=== PATIENT | male | born 1950 | race Caucasian/White ===

== ENCOUNTER 2025-02-19 12:14 | Outpatient (CLI) | payer MEDICARE, SELFPAY ==
--- NOTE | 2025-02-19 12:29 | ECG_ITS ---
Test Date: 2025-02-19 13:18:07 Measurements Intervals Turner Rate: 63 P: 47 AK: 218 QRS: 16 QRSD: 92 T: 37 QT: 419 QTc: 430 Interpretive Statements SINUS RHYTHM WITH FIRST DEGREE AV BLOCK ST DEVIATION AND MODERATE T-WAVE ABNORMALITY, CONSIDER ANTERIOR ISCHEMIA [-0.1+ mV T-WAVE IN V3/V4] No previous ECG available for comparison Electronically Signed On 02-19-2025 21:26:11 EMS DIRECTOR by Karlos Alcazar M.D.
[2025-02-19 13:12] LABS: Hematocrit 36.4 % (42.0-52.0); Hemoglobin 11.9 g/dL (14.0-18.0)
[2025-02-19 13:28] LABS: INR 1.1; Partial Thromboplastin Time 28.0 Seconds (22.3-36.8); Prothrombin Time 14.1 Seconds (11.1-14.7)
[2025-02-19 13:30] LABS: Anion Gap 10 mmol/L (4-12); Blood Urea Nitrogen 34 mg/dL (9-20); Calcium 9.2 mg/dL (8.4-10.2); Carbon Dioxide 26 mmol/L (22-30); Chloride 100 mmol/L (98-107); Estimated Glomerular Filt Rate 42; Glucose 100 mg/dL (65-110); Potassium 3.9 mmol/L (3.4-5.0); Sodium 136 mmol/L (137-145)
--- OUTSIDE RECORDS SUMMARY | 2025-02-19 14:13 | XMS_ITS | Clinical Summary ---
Author Organization [facility] Address [address] [place] [address] Care Team Providers Care Business Account Specialist Name Role Phone Unavailable Primary Care Provider Unavailabl e Source Comments [facility],non-owned Affiliates and Associated Physician Practices is amultiple site organization consisting of ambulatory clinics and hospital sitesin [place], [place], [place] and [place]. This disclosure is being madepursuant to the Care Everywhere program and may not contain all information available regarding this patient. 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 Gender Identity Not on file Sexual Orientation Not on file Plan of Treatment Health Maintenance Due Date Last Done Comments COLOGUARD (AGES 45-75) - COL ON CA SCREENING 1952 COLON MONITORING 1952 COLONOSCOPY - COLON CA SCREENING 1952 CT COLONOGRAPHY - COLON CA SCREENING 1952 Colorectal Cancer Screening 1952 FIT - COLON CA SCREENING 1952 FLEX SIG - COLON CA SCREENING 1952 LIPID TESTING 1952 HEPATITIS C SCREENING 05/25/1970 DTAP/TDAP/TD VACCINES (1 - Tdap) 1971 PNEUMOCOCCAL VACCINE 50+ (1 of 1 - PCV) 2002 ZOSTER VACCINE (1 of 2) 2002 DEPRESSION SCREENING 04/18/2024 COVID-19 VACCINE ( - 2023-2 5 season) 2024 INFLUENZA VACCINE (#1) 2024 Respiratory Syncytial Virus (RSV) Vaccine Pt: or over 60 yrs (1 - 1-dose 75+ series) 2027 HEPATITIS B VACCINE Aged Out No longe r eligible based on patient's age to complete this topic HIB VACCINE Aged Out No longer eligi ble based on patient's age to complete this topic HPV VACCINE Aged Out No longer eligi ble based on patient's age to complete this topic MENINGOCOCCAL (Group B) VACC INE SHARED DECISION-MAKING Aged Out No longer eligibl e based on patient's age to complete this topic MENINGOCOCCAL GROUPS A/C/Y/W VACCINE Aged Out No longer eligible b ased on patient's age to complete this topic
== END 2025-02-19 12:15 | disposition home or self-care (01) ==
LOC: ANHSURGERY 12:22
PROVIDERS: Anesthesiology; PCP Family Medicine; Visit Provider Urology
DX: Z01.818 Encounter for other preprocedural examination (principal); I12.9 Hypertensive chronic kidney disease with stage 1 through stage 4 chronic kidney disease, or unspecified chronic kidney disease; N18.30 Chronic kidney disease, stage 3 unspecified; D63.1 Anemia in chronic kidney disease; E78.5 Hyperlipidemia, unspecified; Z79.899 Other long term (current) drug therapy
CPT/HCPCS: 36415; 80048; 85014; 85018; 85610; 85730; 93005

== ENCOUNTER 2025-02-21 01:02 | Day surgery (SDC) | payer MEDICARE, SELFPAY ==
--- NOTE | 2025-02-13 07:05 | P.HP_ITS ---
History of Present Illness History of Present Illness Consent: Risks, benefits, and alternatives have been discussed and questions answered. Patient agrees to proceed with procedure. Chief complaint: acute chronic urinary retention, BPH Narrative: Campbell Bellamy is a 74 year old male History of Present Illness (Mary Montes APRN; 11/29/2024 1:00 PM) The patient is a 74 year old male here for an evaluation of neurogenic bladder. The patient's neurologic diagnosis is spinal cord injury . ?Bladder management techniques include chronic ritter . Note for Neurogenic bladder - follow-up: . 06/29 - 08/09: ?Absence / not seen in our practice 07/2023: ?Chronic indwelling catheter since 05/2018 due to difficulty ambulating d/t bilat. foot drop. 10/2023: ?Fillinst sensation fillinml ?1st desire to void: 200ml ?Capacity: 250ml ?Compliance: normal ?Emptying: void time: 48sec ?ave. flow: 5ml/sec ?Pressure: peak detrusor pressure: 24guF3E ?peak Valsalva pressure: 12biM30 ?Interpretation: Moderate detrusor pressure ?Plan: ?Prostate volume (CT-[facility] 05/2019): 119gm ?Will re-assess prostate volume and consider PAE. 11/22/24: Patient here for annual check up, he continues with ritter catheter and is interested in suprapubic catheter. He does have an enlarged prostate but thinks it is easier to keep the catheter due to his limited mobility. Currently he has monthly ritter changes through [facility]. He is unsure how long they will do this. He reports prior to this, he was trying to change his catheters himself and was overdue for a change so ended up with a clogged cath. He was admitted to [facility] then transferred [facility] for UTI and dx with sacral wound. Discharged to a fci then home after sacral wound healed. Now has HH. Pt. opting for placement suprapubic catheter as mgmt for chronic urinary retention. Meds Home Medications and Allergies Allergies Allergy/AdvReac Type Severity Reaction Status Date / Time No Known Allergies Allergy Unverified 09/13/17 19:46 Exam Const: General: no acute distress Resp: Effort & Inspection: normal respiratory effort GI: Inspection: non-distended GI Palp: No abdominal tenderness and No Guarding due to palpation present (GI) Auscultation: normal bowel sounds Assessment and Plan Assessment and plan (1) Neurogenic bladder: Code(s): N31.9 - Neuromuscular dysfunction of bladder, unspecified Status: Acute Assessment and Plan: * Cystoscopy, placement s/p cathter.
[2025-02-18 08:46] VITALS: BMI 25.6
--- NOTE | 2025-02-18 09:05 | PC.NURSE ---
[facility] has started construction of its new state of the art ER which will open Spring 2026. With this, we anticipate parking may be a challenge for some our surgical patients and families. Parking spaces are limited but are available for all Surgical, obstetrics, and ER patients sharing this lot. If you arrive and find you are having a hard time finding a parking space, please note that we understand the challenges, please drive around the hospital and park near Hospital Entrance 1. When you enter this entrance, you can ask a volunteer to direct or take you back to the surgical waiting area to check in. We appreciate everyone?s understanding of these expected challenges while we build for your future. Report to the Outpatient Waiting Room, entrance under the green pavilion located off [address], at time __12:45pm on date __02/21/25 . Planned Procedure Time: _2:45pm .? Time changes happen often and if your time is changed the preop area will call you the afternoon before. - You and your visitor will be asked to self-screen and do not enter if you have any COVID symptoms. Please call surgeon if you need to reschedule. - A mask is optional within the hospital at this time. Patients may have clear liquids (water, carbonated beverages, clear teas, apple juice) until 3 hours prior to surgery with a maximum of 20 ounces. - No food from midnight until time of surgery and no smoking, or chewing tobacco (or any form of nicotine). No chewing gum, candy or mints. (11:45am) Take only the following medications with a SIP of water on the morning of surgery: ___Amlodipine, Metoprolol, Gabapentin Cyclobenazprine if needed DO NOT STOP ANY OF YOUR OTHER PRESCRIPTION MEDICATIONS PRIOR TO SURGERY EXCEPT THE FOLLOWING: Hold all vitamins and supplements for 3 days per anesthesiologist. Medications to discontinue per physician NONE Date to take last dose____NONE Please no make-up, nail icelandic, hairspray, perfume, deodorant, or body powder the day of surgery.? No jewelry (including any body piercings) or valuables the day of surgery, leave them at home.? Please take a shower or bath the night before, or the morning of, surgery with an antibacterial soap.? Wear comfortable, loose fitting clothing.? - Jewelry must be removed prior to entering the operating room.? Rings and piercings that are not removed may be cut off. - The hospital will not accept responsibility for valuables.? - Please leave all valuables, including medications, at home the day of surgery. If you are going home after surgery, a licensed milk pickup truck driver must drive you home.? - NO public transportation without another adult if you receive anesthesia. - We recommend that an adult stay with you for 24 hours following discharge. - We also recommend that you do not drive, make important decision, drink alcoholic beverages, or take any drugs that were not prescribed by your health care provider for at least 24 hours after your discharge time. Follow any additional instructions given to you from your surgeon. Telephone instructions given to ___Patient and asked if any additional questions and then verbalized understanding. Patient advised to call surgeon office or pre surgery nurse liaison [phone] if any additional questions.
[2025-02-21] VITALS (7 sets, daily range): BP systolic 117–137; BP diastolic 59–70; PULSE 59–69; RESP 10–12; TEMP 36.7–36.8; O2SAT 96–100; BMI 27.1
--- NOTE | ~2025-02-21 | XR_ITS ---
XR fluoroscopy no charge Indication: Suprapubic cystostomy TECHNIQUE: Fluoroscopy used during suprapubic cystostomy performed by [Sahil Melgar MD] on 02/21/2025. 1 seconds of fluoroscopy with one fluoroscopic images captured. FINDINGS: Correlate with procedure note. IMPRESSION: Fluoroscopy used during suprapubic cystostomy. Reviewed, dictated and finalized at location O. [employer]
--- NOTE | 2025-02-21 06:15 | WPDHPUPDATE1 ---
History and Physical Update Update Date/Time: 02/21/25 06:15 History and Physical has been reviewed, including an updated exam of the patient. There are NO changes in the patient's condition. Risks, benefits, and alternatives have been discussed and questions answered. Patient agrees to proceed with procedure.
[2025-02-21] MEDS: LACTATED RINGERS 1,000 ML 30 ML IV CONT (14:00)
--- NOTE | 2025-02-21 15:14 | WPDANESEPPF ---
Anes - Initial Pre Proc Eval Procedure: Operation Date: 02/21/25 15:30 Proposed Procedures p Suprapubic Cystostomy - Sahil Melgar MD Date/Time: 02/21/25 15:14 Surgeon: aShil Melgar MD Pre Op Diagnosis: acute chronic urinary retention, BPH Patient Data Age: 74 Gender: M Height: 1.78 m Weight: 81 kg Allergies Allergy/AdvReac Type Severity Reaction Status Date / Time No Known Allergies Allergy Verified 02/21/25 13:10 Home Medications ?Medication ?Instructions ?Recorded ?Confirmed ?Type amlodipine 5 mg tablet 5 mg PO DAILY 02/18/25 02/18/25 History cholecalciferol (vitamin D3) 1,250 1,250 mcg PO .every 2 weeks 02/18/25 02/18/25 History mcg (50,000 unit) capsule cyanocobalamin (vitamin B-12) 100 mcg subcut MONTHLY 02/18/25 02/18/25 History 1,000 mcg/mL injection solution cyclobenzaprine 10 mg tablet 10 mg PO Q8H PRN spasms 02/18/25 02/21/25 History ferrous sulfate 325 mg (65 mg 325 mg PO DAILY 02/18/25 02/18/25 History iron) tablet (Feosol) furosemide 40 mg tablet 40 mg PO DAILY 02/18/25 02/21/25 History gabapentin 300 mg capsule 300 mg PO Q8H 02/18/25 02/21/25 History metoprolol tartrate 50 mg tablet 50 mg PO Q12H 02/18/25 02/21/25 History potassium chloride 10 mEq 10 meq PO .day 02/18/25 02/18/25 History tablet,extended release(part/cryst) rosuvastatin 5 mg tablet 5 mg PO HS 02/18/25 02/18/25 History sodium bicarbonate 650 mg tablet 650 mg PO TID 02/18/25 02/18/25 History Patient hx anesthesia problems: none Family hx anesthesia problems: none Results Review: All pre-operative results and documents have been reviewed as part of the pre-operative evaluation. [facility] Social History Social History Smoking packs per day: 1 Smoking cigarettes per day: 20.0 Years smoked: 18 Smoking pack-years: 18.00 Smoking status: Former smoker Tobacco type: cigarettes Smoking end date: 04/18/85 Alcohol intake: current Drinks per week: 14 Substance use: never Living arrangements: with roommate(s) Additional living arrangements comments: GF Spiritual care concerns: No Anes - Eval Final PreProcedure Day of Procedure 02/21/25 15:14 Patient weight: normal Heart: regular rate and rhythm Lungs: clear to auscultation Airway: Mallampati scale class II Neurological: alert and oriented Last oral intake: >/= 8 hours ASA classification: IV Emergent: no Anesthetic plan: proceed Anesthesia type and monitoring: general LMA and standard monitoring Results Review: All pre-operative results and documents have been reviewed as part of the pre-operative evaluation. Informed Consent: The patient's anesthetic plan and its attendant risks and benefits were discussed with the patient/family/POA. Questions were solicited and answers provided to the satisfaction of the patient/family/POA.
[2025-02-21] MEDS: ceFAZolin 2 GM in SODIUM CHLORIDE 0.9% IV 50 ML 100 ML IVPB (15:15)
[2025-02-21] MEDS: LIDOCAINE 1% LOCAL INJ 10 ML VIAL INFILTRATE (15:39)
--- OUTSIDE RECORDS SUMMARY | 2025-02-21 16:05 | XMS_ITS | Encounter Summary ---
Author Organization [facility] Address [facility] [place] [address] Care Team Providers Care Double Reamer Operator Name Role Phone Sumit Herron MD Unavailable [phone] Preston Woodall MD Unavailable [phone] Siva Mcdonnell MD Unavailable [phone] Kristian Dietrich MD Unavailable [phone] Diana Jolley MD Primary Care Provider [phone] Encounter Details Date Type Department Care Team (Late st Contact Info) Description 02/08/2025 [facility] Family [facility] Internal Medicine - [address] [address] [place] [id number] [place] [address]. [address] [place] [address] CBC W/DIFF AUTOMATED, BASIC METABOLIC PANEL Social History Tobacco Use Types Packs/Day Years Used Date Smoking Tobacco: Former Cigarettes 0 08/23/1967 - 08/22/1985 Smokeless Tobacco: Never Alcohol Use Standard Drinks/Week Comments Yes 30 (1 standard drink = 0.6 oz pure alcohol) Patient just d/c from [place]. [facility] Utilities Answer Date Recorded In the past 12 months has th e electric, gas, oil, or water company threatened to shut off services in your home? No 05/19/2023 Humiliation, Afraid, Rape, and Kick questionnair e Answer Date Recorded Within the last year, have y ou been afraid of your partner or ex-partner? No 05/19/2023 Within the last year, have y ou been humiliated or emotionally abused in other ways by your partner or ex-partner? No Within the last year, have y ou been kicked, hit, slapped, or otherwise physically hurt by your partner or ex-partner? No 05/19/2023 Within the last year, have y ou been raped or forced to have any kind of sexual activity by your partner or ex-partner? No 05/19/2023 Social Connection and Isolation Panel Answer Date Recorded In a typical week, how many times do you talk on the phone with family, friends, or neighbors? More than three times a week 05/19/2023 How often do you get togethe r with friends or relatives? More than three times a week 05/19/2023 How often do you attend chur or taoist services? Never 05/19/2023 Do you belong to any clubs o r organizations such as taoist groups, unions, fraternal or athletic groups, or school groups? Yes 05/19/2023 How often do you attend meet ings of the clubs or organizations you belong to? Never 05/19/2023 Are you , , di vorced, , never , or living with a partner? Living with partner 05/19/2023 AUDIT-C Answer Date Recorded Q1: How often do you have a drink containing alcohol? 4 or more times a week 05/19/2023 Q2: How many drinks containi ng alcohol do you have on a typical day when you are drinking? 3 or 4 Q3: How often do you have si x or more drinks on one occasion? Less than monthly 05/19/2023 Overall Financial Resource Strain (CARDIA) Answe r Date Recorded How hard is it for you to pa y for the very basics like food, housing, medical care, and heating? Not very hard 05/19/2023 PHQ-2 Answer Date Recorded Patient Health Questionnaire-2 Score 0 12/13/2024 [facility] - Occupational Stress Questionnaire Answer Date Recorded Do you feel stress - tense, restless, nervous, or anxious, or unable to sleep at night because your mind is troubled all the time - these days? Not at all 05/19/2023 Exercise Vital Sign Answer Date Recorde d On average, how many days pe r week do you engage in moderate to strenuous exercise (like a brisk walk)? 0 days 05/19/2023 On average, how many minutes do you engage in exercise at this level? 10 min 05/19/2023 Hunger Vital Sign Answer Date Recorded Within the past 12 months, y ou worried that your food would run out before you got the money to buy more. Never true 05/19/19 24 Within the past 12 months, t he food you bought just didn't last and you didn't have money to get more. Never true 05/19/2023 PRAPARE - Transportation Answer Date Re corded In the past 12 months, has l ack of transportation kept you from medical appointments or from getting medications? No 04/2023 In the past 12 months, has l ack of transportation kept you from meetings, work, or from getting things needed for daily living? No 05/19/2023 Housing Stability Vital Sign Answer Bhupinder e Recorded In the last 12 months, was t here a time when you were not able to pay the mortgage or rent on time? No 05/19/2023 In the last 12 months, how many places have you lived? 1 05/19/2023 In the last 12 months, was t here a time when you did not have a steady place to sleep or slept in a snf (including now)? No 05/19/2023 Education Answer Date Recorded What is the highest level of school you have completed or the highest degree you have received? 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 Answer Date of Assessment Author Status No 05/19/2023 7:49 PM TRAIN STATION AGENT Grant Friend, R N Active * Do you have serious difficulty walking or climbing stairs? Answer Date of Assessment Author Status Yes 05/19/2023 7:49 PM TRAIN STATION AGENT Grant Friend, R N Active * Do you have difficulty dressing or bathing? Answer Date of Assessment Author Status No 05/19/2023 7:49 PM TRAIN STATION AGENT Grant Friend, R N Active * Because of a physical, mental, or emotional condition, do you have difficulty doing errands alone such as visiting a doctor's office or shopping? Answer Date of Assessment Author Status No 05/19/2023 7:49 PM TRAIN STATION AGENT Grant Friend, R N Active documented as of this encounter Mental Status * Because of a physical, mental, or emotional condition, do you have serious difficulty concentrating, remembering, or making decisions? Answer Entry Date Author Status No 05/19/2023 7:49 PM TRAIN STATION AGENT Grant Friend, R N Active documented in this encounter Plan of Treatment Upcoming Encounters Date Type Department Care Team (Late st Contact Info) Description 07/01/2025 10:00 AM CDT Laboratory Only [facility] Family & Internal Medicine [address] [address] [place] [address] [address] [place] [id number] 07/08/2025 11:20 AM CDT Office Visit [facility] Family & Internal Medicine [address] [address] [place] [address] [address] [place] [address] [phone] documented as of this encounter Visit Diagnoses Diagnosis Hypokalemia Hypopotassemia Left leg swelling Pedal edema Edema documented in this encounter Additional Health Concerns Infection Onset Date Last Indicated Resolved Time ESBL - Extended Spectrum Bet a-lactamase Comment:03/09/19- + urine + Rt hip wound culture 11/22/2019 11/26/2019 wound culture of right hip. Pos ESBL 03/21/2019 03/21/2019 MRSA Comment:+ Rt hip wound culture 11/22/2019 05/20/23 urine (RR) 11/26/2019 05/20/2023 Assessment Noted Time PHQ-9 Depression Total Score: 0 05/04/19 12:58 PM TRAIN STATION AGENT documented as of this encounter Care Teams Double Reamer Operator Relationship Specialty [place] [address] [facility] [place] [address] PCP - General FAMILY PRACTICE 09/24/22 Sumit Herron MD [address] [facility] [address] [place] [id number] [place] Experiential Therapist CARDIOVASCULAR DISEASE 10/05/18 [place] [address] [place] [address] [facility] 11/29/18 Siva Mcdonnell MD [address] [place] [address] Surgeon NEUROLOGICAL SURGERY 11/29/18 Kristian Dietrich MD [address] [place] [phone] Consulting Physician NEPHROLOGY 11/29/18 documented as of this encounter
--- OUTSIDE RECORDS SUMMARY | 2025-02-21 16:05 | XMS_ITS | Clinical Summary ---
Author Organization [facility] Address [address] [place] [address] Care Team Providers Care Patient Resource Coordinator Name Role Phone Unavailable Primary Care Provider Unavailabl e Source Comments [facility],non-owned Affiliates and Associated Physician Practices is amultiple site organization consisting of ambulatory clinics and hospital sitesin [place], [place], [place] and [place]. This disclosure is being madepursuant to the Care Everywhere program and may not contain all information available regarding this patient. 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
--- OUTSIDE RECORDS SUMMARY | 2025-02-21 16:05 | XMS_ITS | Clinical Summary ---
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 anemia COMPREHENSIVE METABOLIC PANEL Routine 11/21/2024 9:15 AM CDT SOHAN (acute kidney injury) CT CHEST+ABD+PEL WO CON STAT 09/02/2024 9:36 PM CDT HEPATITIS PANEL,ACUTE Routine 11/16/2016 2:55 PM CDT COLONOSCOPY GENERIC (SCAN ORDER) Routine 10/05/2016 from Last 3 Months or Most Recently Relevant to Health Maintenance Results * (ABNORMAL) BASIC METABOLIC PANEL (02/06/2025 4:00 PM CDT) Only the most recent of2 resultswithin the time period is included. GLUCOSE 93 70 - 99 MG/DL 02/06/2025 4:57 PM CDT [facility] BUN 20(H) 7 - 18 MG/DL 02/06/2025 4:57 PM CDT [facility] CREATININE S/P/B 1.54(H) 0.7 - 1.3 MG/DL 02/06/2025 4:57 PM CDT [facility] SODIUM S/P/B 140 136 - 145 MMOL/L 02/06/2025 4:57 PM CDT [facility] POTASSIUM S/P/B 4.0 3.5 - 5.1 MMOL/L 02/06/2025 4:57 PM CDT [facility] CHLORIDE S/P/B 102 100 - 108 MMOL/L 02/06/2025 4:57 PM CDT [facility] CO2 29.1 21 - 32 MMOL/L 02/06/2025 4:57 PM CDT [facility] CALCIUM S/P/B 8.6 8.5 - 10.1 MG/DL 02/06/2025 4:57 PM CDT [facility] ANION GAP 8.9 5 - 15 MMOL/L 02/06/2025 4:57 PM CDT [facility] BUN CREATININE RATIO 13.0 6 - 26 02/06/2025 4:57 PM CDT [facility] GFR ESTIMATE 48(L) >90 ML/MIN/1.7 3 M2 02/06/2025 4:57 PM CDT [facility] Comment: NOTE: eGFR is not calculated for patients <18 years of age. This is an estimated GFR calculation using the new CKD EPI creatinine equation without race and so does not require a correction factor for race. This estimated GFR should not be used for calculating drug doses. 02/06/2025 4:00 PM CDT Diana Jolley MD LABORATORY Final Result [facility] [address] [place] [address], [place] [phone] * (ABNORMAL) CBC W/DIFF AUTOMATED (02/06/2025 4:00 PM CDT) Only the most recent of2 resultswithin the time period is included. WBC 4.42 4.4 - 11.0 x10'3/uL 02/06/2025 4:32 PM CDT [facility] RBC 4.35(L) 4.50 - 5.90 x10'6/uL 02/06/2025 4:32 PM CDT [facility] HGB 12.1(L) 14.0 - 17.5 G/DL 02/06/2025 4:32 PM CDT [facility] HCT 37.7(L) 41.5 - 50.4 % 02/06/2025 4:32 PM CDT [facility] MCV 86.7 80.0 - 96.0 FL 02/06/2025 4:32 PM CDT [facility] MCH 27.8 26.5 - 31.4 PG 02/06/2025 4:32 PM CDT [facility] MCHC 32.1 31.9 - 34.8 G/DL 02/06/2025 4:32 PM CDT [facility] RDW 14.7(H) 12.3 - 14.3 % 02/06/2025 4:32 PM T [facility] PLT 155 151 - 353 x10'3/uL 02/06/2025 4:32 PM T [facility] MPV 9.3(L) 9.7 - 11.9 FL 02/06/2025 4:32 PM T [facility] RBC MORPHOLOGY NORMAL 02/06/2025 4:32 PM T [facility] PLT MORPH. NORMAL 02/06/2025 4:32 PM CDT [facility] WBC MORPHOLOGY NORMAL 02/06/2025 4:32 PM T [facility] LYMPHOCYTES % 36.9 15.8 - 45.0 % 02/06/2025 4:32 PM CDT [facility] NEUTROPHILS % 48.4 42.1 - 71.9 % 02/06/2025 4:32 PM CDT [facility] MONOCYTES % 8.1 5.7 - 12.5 % 02/06/2025 4:32 PM CDT [facility] EOSINOPHILS 5.7(H) 0.0 - 5.6 % 02/06/2025 4:32 PM CDT [facility] BASOPHILS 0.7 0.0 - 1.3 % 02/06/2025 4:32 PM CDT [facility] ABS. NEUTROPHILS 2.14 1.40 - 6.00 x10'3/uL 02/06/2025 4:32 PM CDT [facility] IMMATURE GRANS % 0.2 0.0 - 0.5 % 02/06/2025 4:32 PM CDT [facility] ABS. LYMPHOCYTES 1.63 0.80 - 4.70 x10'3/uL 02/06/2025 4:32 PM CDT [facility] 02/06/2025 4:00 PM CDT Diana Jolley MD LABORATORY Final Result [facility] [address] [place] [address], * (ABNORMAL) URINE BACTERIA CULTURE (11/21/2024 9:15 AM CDT) SPEC DESCRIPTION URINE TINSLEY CATH 11/21/2024 9:56 AM CDT [facility] SPECIAL REQUESTS NO SPECIAL REQUEST 11/21/2024 9:56 AM CDT [facility] CULTURE RESULT >100,000 COL/ML PROTEUS MIRABILIS (A) 11/24/2024 6:56 AM CDT [facility] CULTURE RESULT >100,000 COL/ML PSEUDOMONAS AERUGINOSA NOTE: ORGANISM MAY DEVELOP RESISTANCE AFTER 3 TO 4 DAYS OF THERAPY WITH THIRD GENERATION CEPHALOSPORINS . TESTING OF REPEAT ISOLATES MAY BE WARRANTED. (A) 11/24/2024 6:56 AM CDT [facility] URINE SPECIMEN OBTAINED VIA INDWELLING URINARY CATHETER / Unknown 11/21/2024 9:15 AM CDT 11/21/2024 9:56 AM CDT Narrative Organism Antibiotic Method Susceptibility Proteus mirabilis AMPICILLIN MARK (VITEK) <=2: Sensitive Proteus mirabilis AMPICILLIN/SULBACTAM MARK (VITEK) <=2: Sensitive Proteus mirabilis CEFTRIAXONE MARK (VITEK) <=1: Sensitive Proteus mirabilis CEFTAZIDIME MARK (VITEK) <=1: Sensitive Proteus mirabilis CEFAZOLIN MARK (VITEK) <=4: Sensitive Proteus mirabilis NITROFURANTOIN MARK (VITEK) 128: Resistant Proteus mirabilis GENTAMICIN MARK (VITEK) <=1: Sensitive Proteus mirabilis PIPERACILLIN/TAZOBACTAM MARK (VITEK) <=4: Sensitive Proteus mirabilis TRIMETH-SULFAMETH. MARK (VITEK) 40: Sensitive Pseudomonas aeruginosa CEFTAZIDIME MARK (VITEK) 4: Sensitive Pseudomonas aeruginosa LEVOFLOXACIN MARK (VITEK) 1: Sensitive Pseudomonas aeruginosa PIPERACILLIN/TAZOBACTAM MARK ( ARIC) 8: Sensitive Pseudomonas aeruginosa TOBRAMYCIN MARK (VITEK) Sensitive us Diana Jolley MD MICROBIOLOGY - GENERAL ORDERAB LES Final Result [facility] [address] [place] [address], [place] [phone] [facility] [address] [place] [address], [place] [phone] * (ABNORMAL) COMPREHENSIVE METABOLIC PANEL (11/21/2024 9:15 AM CDT) [facility] GLUCOSE 98 70 - 99 MG/DL 11/21/2024 10:19 AM CDT [facility] BUN 21(H) 7 - 18 MG/DL 11/21/2024 10:19 AM CDT [facility] CREATININE S/P/B 1.55(H) 0.7 - 1.3 MG/DL 11/21/2024 10:19 AM [facility] SODIUM S/P/B 141 136 - 145 MMOL/L 11/21/2024 10:19 AM [facility] POTASSIUM S/P/B 4.1 3.5 - 5.1 MMOL/L 11/21/2024 10:19 AM [facility] CHLORIDE S/P/B 105 100 - 108 MMOL/L 11/21/2024 10:19 AM [facility] CO2 26.4 21 - 32 MMOL/L 11/21/2024 10:19 AM [facility] CALCIUM S/P/B 8.5 8.5 - 10.1 MG/DL 11/21/2024 10:19 AM [facility] BILIRUBIN TOTAL S/P/B 0.5 0.2 - 1.2 MG/DL 11/21/2024 10:19 AM [facility] TOTAL PROTEIN S/P/B 6.5 6.4 - 8.2 G/DL 11/21/2024 10:19 AM [facility] ALBUMIN S/P/B 3.3(L) 3.4 - 5.0 G/DL 11/21/2024 10:19 AM [facility] AST 18 15 - 37 U/L 11/21/2024 10:19 AM [facility] ALT 14(L) 16 - 60 U/L 11/21/2024 10:19 AM [facility] ALKALINE PHOSPHATASE S/P/B 81 50 - 136 U/L 11/21/2024 10:19 AM [facility] ANION GAP 9.6 5 - 15 MMOL/L 11/21/2024 10:19 AM [facility] BUN CREATININE RATIO 13.5 6 - 26 11/21/2024 10:19 AM CDT [facility] A/G RATIO 1.0 1.0 - 2.0 RATIO 11/21/2024 10:19 AM CDT [facility] GFR ESTIMATE 47(L) >90 ML/MIN/1.7 3 M2 11/21/2024 10:19 AM CDT [facility] Comment: NOTE: eGFR is not calculated for patients <18 years of age. This is an estimated GFR calculation using the new CKD EPI creatinine equation without race and so does not require a correction factor for race. This estimated GFR should not be used for calculating drug doses. 11/21/2024 9:15 AM CDT us Diana Jolley MD LABORATORY Final Result [facility] [address] [place] [address], * CT CHEST+ABD+PEL WO CON (09/02/2024 9:36 PM CDT) Anatomical Region Laterality Modality Chest, Abdomen, Pelvis Computed Tomography 09/02/2024 9:38 PM CDT Impressions 09/02/2024 9:58 PM CDT IMPRESSION: 1. Moderate-severe bilateral hydronephrosis and hydroureter without distal obstructing stone identified. 2. Bilateral renal stones. 3. Underdistended urinary bladder with Tinsley catheter and likely associated small amount of air. Cystitis is less likely. 4. Large rectal stool burden. 5. Distended gallbladder and dilatation of the common bile duct, 11 mm. Further evaluation with ultrasound and/or MRCP is recommended. 6. No acute intrathoracic findings. 7. Additional findings as above. Referred By: Interpreted By: Uvaldo Zimmer MD, 09/02/2024 9:38 PM Narrative 09/02/2024 9:58 PM CDT [facility] [address] [place] [address] EXAMINATION: CT Chest, Abdomen, and Pelvis without contrast EXAM DATE/TIME: 09/02/2024 8:15 PM REASON FOR EXAM: 74 years of age, Male, with generalized weakness, new hyperammonemia, renal failure, COMPARISON: CT abdomen pelvis 05/25/2019, chest x-ray 09/02/2024 TECHNIQUE: Axial CT images of the chest abdomen and pelvis are obtained without intravenous contrast. Subsequent coronal and sagittal reformatted sequences are created for evaluation. Automated exposure control was utilized for dose reduction. FINDINGS: Chest: Heart: No cardiomegaly. No pericardial effusion. Coronary artery calcification. Mediastinal/Lymph nodes: No mass or lymphadenopathy. Lungs/Pleura: No pulmonary mass or airspace consolidation. Left basilar atelectasis. Bronchial wall thickening. No pleural effusion. No pneumothorax. Musculoskeletal: No acute osseous findings. Abdomen/pelvis: Liver/biliary: The liver is normal in size and smooth in surface contour. No definite focal liver lesions are seen. Gallbladder is distended and otherwise within normal limits. Dilatation of the common bile duct, 11 mm. Pancreas/adrenals/spleen: Unremarkable. Genitourinary: The left kidney is smaller than the right. Bilateral nonspecific perinephric stranding. Moderate-severe bilateral hydronephrosis and hydroureter without distal obstructing stone identified. Bilateral renal stones are seen. No definite renal mass lesion is seen. Urinary bladder is underdistended with Tinsley catheter and likely associated small amount of air. The prostate is borderline enlarged. Bowel: No bowel obstruction or inflammatory change is seen. The appendix is visualized without evidence of appendicitis. Large rectal stool burden. Peritoneum: No free air or free fluid is seen. Lymph nodes: No lymphadenopathy is seen. Musculoskeletal: No acute osseous findings. Height loss of L1 and L3 vertebral bodies are similar to 06/14/2019. Procedure Note Uvaldo Zimmer MD - 09/02/2024 [facility] [address] [place] [id number] EXAMINATION: CT Chest, Abdomen, and Pelvis without contrast EXAM DATE/TIME: 09/02/2024 8:15 PM REASON FOR EXAM: 74 years of age, Male, with generalized weakness, newhyperammonemia, renal failure, COMPARISON: CT abdomen pelvis 05/25/2019, chest x-ray 09/02/2024 TECHNIQUE: Axial CT images of the chest abdomen and pelvis are obtainedwithout intravenous contrast. Subsequent coronal and sagittal reformattedsequences are created for evaluation. Automated exposure control wasutilized for dose reduction. FINDINGS: Chest: Heart: No cardiomegaly. No pericardial effusion. Coronary arterycalcification. Mediastinal/Lymph nodes: No mass or lymphadenopathy. Lungs/Pleura: No pulmonary mass or airspace consolidation. Left basilaratelectasis. Bronchial wall thickening. No pleural effusion. Nopneumothorax. Musculoskeletal: No acute osseous findings. Abdomen/pelvis: Liver/biliary: The liver is normal in size and smooth in surface contour.No definite focal liver lesions are seen. Gallbladder is distended andotherwise within normal limits. Dilatation of the common bile duct, 11mm. Pancreas/adrenals/spleen: Unremarkable. Genitourinary: The left kidney is smaller than the right. Bilateralnonspecific perinephric stranding. Moderate-severe bilateralhydronephrosis and hydroureter without distal obstructing stoneidentified. Bilateral renal stones are seen. No definite renal masslesion is seen. Urinary bladder is underdistended with Tinsley catheter andlikely associated small amount of air. The prostate is borderlineenlarged. Bowel: No bowel obstruction or inflammatory change is seen. The appendixis visualized without evidence of appendicitis. Large rectal stoolburden. Peritoneum: No free air or free fluid is seen. Lymph nodes: No lymphadenopathy is seen. Musculoskeletal: No acute osseous findings. Height loss of L1 and N5lizvlhimi bodies are similar to 06/14/2019. IMPRESSION: 1. Moderate-severe bilateral hydronephrosis and hydroureter withoutdistal obstructing stone identified. 2. Bilateral renal stones. 3. Underdistended urinary bladder with Tinsley catheter and likelyassociated small amount of air. Cystitis is less likely. 4. Large rectal stool burden. 5. Distended gallbladder and dilatation of the common bile duct, 11 mm.Further evaluation with ultrasound and/or MRCP is recommended. 6. No acute intrathoracic findings. 7. Additional findings as above. Referred By: Interpreted By: Uvaldo Zimmer MD, 09/02/2024 9:38 PM Logan Weaver MD CT Final Resu lt * HEPATITIS PANEL,ACUTE (11/16/2016 2:55 PM CDT) HAV IGM NON-REACTI VE NON-REACTI VE 11/17/2016 5:24 PM CDT [facility] Comment: [place] [address] HEP B SURFACE AB NON-REACTI VE 11/17/2016 5:24 PM CDT [facility] Comment: TESTING PERFORMED [place] [id number] HEPATITIS B SURFACE AG NON-REACTI VE NON-REACTI VE 11/17/2016 5:24 PM CDT [facility] Comment: TESTING PERFORMED [place] [phone] HEP B CORE TOTAL AB NON-REACTI VE NON-REACTI VE 11/17/2016 5:24 PM CDT [facility] Comment: TESTING PERFORMED [address] [address] HEPATITIS C AB NON-REACTI VE NON-REACTI VE 11/17/2016 5:24 PM CDT [facility] Comment: [place] [address] 11/16/2016 2:55 PM CDT 11/16/2016 5:17 PM CDT us Generic Conversion Md [facility] Final R esult [facility] [address] [place] [address], [place] [phone] * COLONOSCOPY (10/05/2016) us Documents Scanned SCANNING Final Result from Last 3 Months or Most Recently Relevant to Health Maintenance Additional Health Concerns Infection Onset Date Last Indicated ESBL - Extended Spectrum Bet a-lactamase Comment:03/09/19- + urine + Rt hip wound culture 11/22/2019 11/26/2019 wound culture of right hip. Pos ESBL 03/21/20192018 MRSA Comment:+ Rt hip wound culture 11/22/2019 05/20/23 urine (RR) 11/26/2019 05/20/2023 Insurance MEDICARE [facility] MEDICARE [employer] Advance Directives Documents on File Type Date Recorded Patient Clinical Product Manager Expl anation Advance Directives and Living Will 05/23/2023 10:13 AM 05/20/2023 ME STATUTORY SHORT FORM POA FOR HEALTH CARE * Full Code (Latest Code Status on File) Date Activated Date Inactivated Comments 05/19/2023 7:50 PM 05/22/2023 5:46 PM * Full Code Date Activated Date Inactivated Comments 03/09/2019 8:17 PM 03/16/2019 4:52 PM * Full Code Date Activated Date Inactivated Comments 11/30/2018 5:31 PM 12/01/2018 9:56 PM * Full Code Date Activated Date Inactivated Comments 11/23/2018 9:08 AM 11/23/2018 4:16 PM * Full Code Date Activated Date Inactivated Comments 10/28/2018 1:16 AM 11/04/2018 1:30 PM Care Teams Local Delivery Truck Driver Relationship Specialty [place] [address] [facility]. [address] [place] [address] PCP - General FAMILY PRACTICE 09/24/22 Sumit Herron MD [address] [facility] [address] [place] [address] Artemus Brush Clearing Laborer CARDIOVASCULAR DISEASE 10/05/18 [place] [address] [place] [address] FAMILY PRACTICE 11/29/18 Siva Mcdonnell MD [address] [place] [address] Surgeon NEUROLOGICAL SURGERY 11/29/18 Kristian Dietrich MD [address] [place] [address] Consulting Physician NEPHROLOGY 11/29/18
--- OUTSIDE RECORDS SUMMARY | 2025-02-21 16:05 | XMS_ITS | Encounter Summary ---
Author Organization [facility] Address [facility] [place] [address] Care Team Providers Care After School Program Teacher Name Role Phone Sumit Herron MD Unavailable Preston Woodall MD Unavailable [phone] Siva Mcdonnell MD Unavailable [phone] Kristian Dietrich MD Unavailable [phone] Diana Jolley MD Primary Care Provider [phone] Encounter Details Date Type Department Care Team (Latest Contact Info) Description 02/14/2025 Scan [facility] INFO SRVCS Scanned, Doc Med Group Social History Tobacco Use Types Packs/Day Years Used Date Smoking Tobacco: Former Cigarettes 0 08/23/1967 - 08/22/1985 Smokeless Tobacco: Never Alcohol Use Standard Drinks/Week Comments Yes 30 (1 standard drink = 0.6 oz pure alcohol) Patient just d/c from [facility] Utilities Answer Date Recorded In the past 12 months has e [employer] gas, oil, or water [employer] threatened to shut off services in your [...] How often do you attend chur or evangelical services? Never 05/19/2023 Do you belong to any clubs o r organizations such as adventism groups, unions, fraternal or athletic groups, or [...] Recorded Patient Health Questionnaire-2 Score 0 12/13/2024 [facility] of Occupat ional Health - Occupational Stress [...] place to sleep or slept in a long-term (including now)? No 05/19/2023 Education Answer Date Recorded What is the highest level of school you have completed or the highest degree you have received? 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 Answer Date of Assessment Author Status No 05/19/2023 7:49 PM Grant Kingsley R N Active * Do you have serious difficulty walking or climbing stairs? Answer Date of Assessment Author Status Yes 05/19/2023 7:49 PM Grant Kingsley R N Active * Do you have difficulty dressing or bathing? Answer Date of Assessment Author Status No 05/19/2023 7:49 PM Grant Kingsley R N Active * Because of a physical, mental, or emotional condition, do you have difficulty doing errands alone such as visiting a doctor's office or shopping? Answer Date of Assessment Author Status No 05/19/2023 7:49 PM Grant Kingsley R N Active documented as of this encounter Mental Status * Because of a physical, mental, or emotional condition, do you have serious difficulty concentrating, remembering, or making decisions? Answer Entry Date Author Status No 05/19/2023 7:49 PM Grant Kingsley R N Active documented in this encounter Plan of Treatment Upcoming Encounters Date Type Department Care Team (Late st Contact Info) Description 07/01/2025 10:00 AM CDT Laboratory Only [facility] Family & Internal Medicine [address] [phone] [place] [address] [employer] [place] [phone] 07/08/2025 11:20 AM CDT Office Visit [facility] Family & Internal [address] [phone] [place] [address] [place] [address] documented as of this encounter Visit Diagnoses Not on filedocumented in this encounter Additional Health Concerns Infection Onset Date Last Indicated Resolved Time ESBL - Extended Spectrum Bet a-lactamase Comment:03/09/19- + urine + Rt hip wound culture 11/22/2019 11/26/2019 wound culture of right hip. Pos ESBL 03/21/2019 03/21/2019 MRSA Comment:+ Rt hip wound culture 11/22/2019 05/20/23 urine (RR) 11/26/2019 05/20/2023 Assessment Noted Time PHQ-9 Depression Total Score: 0 05/04/19 12:58 PM DIFFUSION FURNACE OPERATOR documented as of this encounter Care Teams After School Program Teacher Relationship Specialty Start [place] [address] [address] [place] [address] PCP - General FAMILY PRACTICE 09/24/22 Sumit Herron MD 3 [facility] [address] [place] [phone] [place] [employer] Technical Lead CARDIOVASCULAR DISEASE 10/05/18 [place] [address] [place] [address] FAMILY PRACTICE 11/29/18 Siva Mcdonnell MD [address] [place] [address] Surgeon NEUROLOGICAL SURGERY 11/29/18 Kristian Dietrich MD [address] [place] [address] Consulting Physician NEPHROLOGY 11/29/18 documented as of this encounter
--- OUTSIDE RECORDS SUMMARY | 2025-02-21 16:05 | XMS_ITS | Encounter Summary ---
Author Organization [facility] Address [address] [place] [address] Care Team Providers Care Insurance Salesperson Name Role Phone Annette Steele MD Primary Care Provider [phone] Sumit Herron MD Unavailable [phone] Preston Woodall MD Unavailable [phone] Siva Mcdonnell MD Unavailable [phone] Kristian Dietrich MD Unavailable [phone] Diana Jolley MD Primary Care Provider [phone] Debi Michael RN Unavailable [phone] Debi Michael RN Unavailable [phone] Encounter Details Date Type Department Care Team (Late st Contact Info) Description 11/22/2018 Hospital Orders Only [facility] Biometrics Analyst [place], [place] [id number] Marc Conroy MD [facility]. [facility] [address] [place] [address] [phone] Social History Tobacco Use Types Packs/Day Years Used Date Smoking Tobacco: Former Cigarettes 0 08/23/1967 - 08/22/1985 Smokeless Tobacco: Never Alcohol Use Standard Drinks/Week Comments Yes 0 (1 standard drink = 0.6 oz pur e alcohol) 2-3 to 5-6 beers daily AUDIT-C Answer Date Recorded Frequency of Alcohol Consumption 4 or more times a week 04/24/2018 Average Number of Drinks 3 or 4 019 Frequency of Binge Drinking Less than monthly Overall Financial Resource Strain (CARDIA) Answe r Date Recorded Difficulty of Paying Living Expenses Not hard at all 04/24/2018 PHQ-2 Answer Date Recorded PHQ-2 Score 0 07/24/2018 Hunger Vital Sign Answer Date Recorded Worried About Running Out of Food in the Last Ye ar Patient declined 04/24/2018 Ran Out of Food in the Last Year Patient decline d 04/24/2018 PRAPARE - Transportation Answer Date Re corded Lack of Transportation (Medical) Patient decline d 04/24/2018 Lack of Transportation (Non-Medical) Patient dec lined 04/24/2018 Education Answer Date Recorded What is the highest level of school you have completed or the highest degree you have received? 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 Answer Date of Assessment Author Status No 11/04/2018 10:31 AM CDT Acti ve * Do you have serious difficulty walking or climbing stairs? Answer Date of Assessment Author Status Yes 11/04/2018 10:31 AM CDT Ayana Rich RN Active * Do you have difficulty dressing or bathing? Answer Date of Assessment Author Status Yes 11/04/2018 10:31 AM Ayana Valera RN Active * Because of a physical, mental, or emotional condition, do you have difficulty doing errands alone such as visiting a doctor's office or shopping? Answer Date of Assessment Author Status Yes 11/04/2018 10:31 AM Ayana Valera RN Active documented as of this encounter Mental Status * Because of a physical, mental, or emotional condition, do you have serious difficulty concentrating, remembering, or making decisions? Answer Entry Date Author Status No 11/04/2018 10:31 AM CDT Ayana Rich RN Active documented in this encounter Plan of Treatment Upcoming Encounters Date Type Department Care Team (Late st Contact Info) Description 07/01/2025 10:00 AM CDT Laboratory Only [facility] Family & Internal Medicine [address] [address] [place] [address] [place] [address] 07/08/2025 11:20 AM CDT Office Visit [facility] Family & Internal [address] [address] [place] [address] [place] [phone] documented as of this encounter Visit Diagnoses Not on filedocumented in this encounter Additional Health Concerns Infection Onset Date Last Indicated Resolved Time C. difficile Comment:03/10/19- Cdiff positive 03/13/2019 03/13/2019 024 8:44 AM ASSOCIATE PROGRAMMER ANALYST ESBL - Extended Spectrum Beta-lactamase Comment:03/09/19- + urine + Rt hip wound culture 11/22/2019 11/26/2019 wound culture of right hip. Pos ESBL 03/21/2019 03/21/2019 MRSA Comment:+ Rt hip wound culture 11/22/2019 05/20/23 urine (RR) 11/26/2019 05/20/2023 COVID-19 Rule Out 05/20/2023 05/20/2023 05/20/2023 2:27 PM ASSOCIATE PROGRAMMER ANALYST documented as of this encounter Care Teams Insurance Salesperson Relationship Specialty Start Date End Date Annette Steele MD PCP - General INTERNAL MEDICINE 07/24/18 09/23/22 [place] [address] [facility] [address] [place] [address] PCP - General FAMILY PRACTICE 09/24/22 Sumit Herron MD 3 [facility] [address] [place] [phone] [place] [employer] Sales Supervisor CARDIOVASCULAR DISEASE 10/05/18 [place] [address] [place] [address] [facility] PRACTICE 11/29/18 Siva Mcdonnell MD 3 [place] [address] Surgeon NEUROLOGICAL SURGERY 11/29/18 Kristian Dietrich MD [address] [place] [address] Consulting Physician NEPHROLOGY 11/29/18 Debi Michael RN [address] [place] [address] Rn Sexual Assault (Ambulatory) REGISTERED NURSE 05/23/23 06/07/23 Debi Michael RN [address] [place] [address] Rn Sexual Assault (Ambulatory) REGISTERED NURSE 09/04/24 11/06/24 documented as of this encounter
--- OUTSIDE RECORDS SUMMARY | 2025-02-21 16:05 | XMS_ITS | Encounter Summary ---
Author Organization [facility] Address [facility] [place] [address] Care Team Providers Care Insole Lip Turner Name Role Phone Sumit Herron MD Unavailable [phone] Preston Woodall MD Unavailable [phone] Siva Mcdonnell MD Unavailable [phone] Kristian Dietrich MD Unavailable [phone] Diana Jolley MD Primary Care Provider [phone] Reason for Visit * Reason Onset Date Comments Advice 02/18/2025 Encounter Details Date Type Department Care Team (Late st Contact Info) Description 02/18/2025 Telephone [facility] Family & Internal Medicine [facility] [address] [place] [address] [place] [address] [place] [address]. [address] [place] [address] Advice Social History Tobacco Use Types Packs/Day Years Used Date Smoking Tobacco: Former Cigarettes 0 08/23/1967 - 08/22/1985 Smokeless Tobacco: Never Alcohol Use Standard Drinks/Week Comments Yes 30 (1 standard drink = 0.6 oz pure alcohol) Patient just d/c from [place]. [facility] Utilities Answer Date Recorded In the past 12 months has [facility] electric, gas, oil, or water company threatened [...] week 05/19/2023 How often do you attend [facility] or hoahaoism services? Never 05/19/2023 Do you belong to any clubs o r organizations such as pentecostalism groups, unions, fraternal or athletic groups, or [...] Recorded Patient Health Questionnaire-2 Score 0 12/13/2024 [facility] - Occupational Stress Questionnaire Answer [...] place to sleep or slept in a [facility] (including now)? No 05/19/2023 Education Answer Date Recorded What is the highest level of school you have completed or the highest degree you have received? 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 Answer Date of Assessment Author Status No 05/19/2023 7:49 PM AUTO WASHER Grant Friend T, R N Active * Do you have serious difficulty walking or climbing stairs? Answer Date of Assessment Author Status Yes 05/19/2023 7:49 PM AUTO WASHER Grant Friend T, R N Active * Do you have difficulty dressing or bathing? Answer Date of Assessment Author Status No 05/19/2023 7:49 PM AUTO WASHER Grant Friend T, R N Active * Because of a physical, mental, or emotional condition, do you have difficulty doing errands alone such as visiting a doctor's office or shopping? Answer Date of Assessment Author Status No 05/19/2023 7:49 PM AUTO WASHER Grant Friend T, R N Active documented as of this encounter Mental Status * Because of a physical, mental, or emotional condition, do you have serious difficulty concentrating, remembering, or making decisions? Answer Entry Date Author Status No 05/19/2023 7:49 PM AUTO WASHER Grant Friend T, R N Active documented in this encounter Progress Notes * Jessica Thomson RN - 02/20/2025 8:33 AM CST Spoke ot Campbell & informed of 's message, v/u & states he doesn't need a refill of Gabapentin, will call in a week or so and let us know if this is helping. WASHER * Jessica Thomson RN - 02/19/2025 11:44 AM CST LMOM to call office- need to inform of 's response and ask if he needs a refill(if so whatpharmacy). WASHER * Diana Jolley MD - 02/19/2025 8:59 AM CST Can increase gabapentin - 600 mg am, 600 mg pm and continue 300 mg afternoon WASHER * Alanna Smith - 02/18/2025 11:28 AM CST HOME HEALTH QUESTIONS & CALLS: Name of RN/Therapist: Mindi Name of Organization: [facility] RN/Therapist Reason for Call: Pt was certified toady and he was complaining of shoulder, wrist and hand pain --ongoing for quite some time. He has been using Tylenol, but it is not helping anymore. He will like to know if there is any other medication that he can take. Pleas advise. WASHER documented in this encounter Plan of Treatment Upcoming Encounters Date Type Department Care Team (Late st Contact Info) Description 07/01/2025 10:00 AM CDT Laboratory Only [facility] Family & Internal Medicine [address] [address] [place] [address] [address] [address] [place] [id number] 07/08/2025 11:20 AM CDT Office Visit [facility] Family & Internal Medicine [address] [address] [place] [address] [address] [place] [address] documented as of this encounter Visit Diagnoses [...] Depression Total Score: 0 05/04/19 12:58 PM AUTO WASHER documented as of this encounter Care Teams Insole Lip Turner Relationship Specialty [place] [address] [address] [place] [address] PCP - General FAMILY PRACTICE 09/24/22 Sumit Herron MD 3 [facility] [address] [place] [phone] [place] Operating Room Scheduler CARDIOVASCULAR DISEASE 10/05/18 [place] [address] [place] [address] [facility] PRACTICE 11/29/18 Siva Mcdonnell MD [address] [place] [address] Surgeon NEUROLOGICAL SURGERY 11/29/18 Kristian Dietrich MD [address] [place] [address] Consulting Physician NEPHROLOGY 11/29/18 documented as of this encounter
--- OUTSIDE RECORDS SUMMARY | 2025-02-21 16:05 | XMS_ITS | Encounter Summary ---
Author Organization [facility] Address [facility] [place] [address] Care Team Providers Care Laboratory Equipment Cleaner Name Role Phone Sumit Herrno MD Unavailable [phone] Preston Woodall MD Unavailable [phone] Siva Mcdonnell MD Unavailable [phone] Kristian Dietrich MD Unavailable [phone] Diana Jolley MD Primary Care Provider [phone] Encounter Details Date Type Department Care Team (Latest Contact Info) Description 02/04/2025 Scan [facility] Scanned, Doc Med Group Social History Tobacco Use Types Packs/Day Years Used Date Smoking Tobacco: Former Cigarettes 0 08/23/1967 - 08/22/1985 Smokeless Tobacco: Never Alcohol Use Standard Drinks/Week Comments Yes 30 (1 standard drink = 0.6 oz pure alcohol) Patient just d/c from [facility] Utilities Answer Date Recorded In the past 12 months has e [employer] gas, oil, or water [employer] threatened to shut off services in your [...] How often do you attend chur or jehovah's witness services? Never 05/19/2023 Do you belong to any clubs o r organizations such as christianity groups, unions, fraternal or athletic groups, or [...] Recorded Patient Health Questionnaire-2 Score 0 12/13/2024 [facility] [place] of Occupat ional Health - Occupational Stress [...] place to sleep or slept in a [place] [facility] (including now)? No 05/19/2023 Education Answer Date Recorded What is the highest level of school you have completed or the highest degree you have received? 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 [place] [id number] 07/08/2025 11:20 AM CDT Office Visit [facility] Family & Internal [address] [phone] [place] [address] [place] [address] documented as of this encounter Visit Diagnoses [...] Depression Total Score: 0 05/04/19 12:58 PM VIDEO GAME TECHNICIAN documented as of this encounter Care Teams Laboratory Equipment Cleaner Relationship Specialty Start [place] [address] [address] [place] [address] PCP - General FAMILY PRACTICE 09/24/22 Sumit Herron MD 3 [facility] [address] [place] [phone] [place] Production Helper CARDIOVASCULAR DISEASE 10/05/18 [place] [address] [place] [address] FAMILY PRACTICE 11/29/18 Siva Mcdonnell MD 3 [place] [address] Surgeon NEUROLOGICAL SURGERY 11/29/18 Kristian Dietrich MD [address] [place] [address] Consulting Physician NEPHROLOGY 11/29/18 documented as of this encounter
--- OUTSIDE RECORDS SUMMARY | 2025-02-21 16:05 | XMS_ITS | Encounter Summary ---
Author Organization [facility] Address [address] [place] [address] Care Team Providers Care Bank Guard Name Role Phone Annette Steele MD Primary Care Provider [phone] Sumit Herron MD Unavailable [phone] Preston Woodall MD Unavailable [phone] Siva Mcdonnell MD Unavailable [phone] Kristian Dietrich MD Unavailable [phone] Diana Jolley MD Primary Care Provider [phone] Debi Michael RN Unavailable [phone] Debi Michael RN Unavailable [phone] Encounter Details Date Type Department Care Team (Late st Contact Info) Description 11/05/2018 Hospital Follow-up Call [facility] Med/Surg [address] [place], [place] [phone] Aurelia Kwok RN Social History Tobacco Use Types Packs/Day Years [...] Sex Assigned at Male 04/24/2018 2:57 PM GUT SNATCHER Legal Sex Male 4:49 PM CDT Gender Identity Male 04/24/2018 2:57 PM GUT SNATCHER Sexual Orientation Straight 02/06/2025 11 :16 AM CDT Occupation Industry 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 Answer Date of Assessment Author Status Yes 11/04/2018 10:31 AM JASWANTT Ayana Rich RN Active * Because of a physical, [...] Description 07/01/2025 10:00 AM CDT Laboratory Only [facility] Family & Internal Medicine [facility] [address] [place] [address] [place] [address] [place] [address] 07/08/2025 11:20 AM CDT Office Visit [facility] Family & Internal [facility] [address] [place] [address] [place] [address] [place] [address] documented as of this encounter Visit Diagnoses Not on filedocumented in this encounter Additional Health Concerns Infection Onset Date Last Indicated Resolved Time C. difficile Comment:03/10/19- Cdiff positive 03/13/2019 03/13/2019 024 8:44 AM GUT SNATCHER ESBL - Extended Spectrum Beta-lactamase Comment:03/09/19- + urine + Rt hip wound culture 11/22/2019 11/26/2019 wound culture of right hip. Pos ESBL 03/21/2019 03/21/2019 MRSA Comment:+ Rt hip wound culture 11/22/2019 05/20/23 urine (RR) 11/26/2019 05/20/2023 COVID-19 Rule Out 05/20/2023 05/20/2023 05/20/2023 2:27 PM GUT SNATCHER documented as of this encounter Care Teams Bank Guard Relationship Specialty Start Date End Date Annette Steele MD PCP - General INTERNAL MEDICINE 07/24/18 09/23/22 [place] [address] [place] [address] PCP - General FAMILY PRACTICE 09/24/22 Sumit Herron MD 3 [facility] [address] [place] [address] [place] Research Worker Kitchen CARDIOVASCULAR DISEASE 10/05/18 [place] [address] [place] [address] FAMILY PRACTICE 11/29/18 Siva Mcdonnell MD 3 [place] [address] Surgeon NEUROLOGICAL SURGERY 11/29/18 Kristian Dietrich MD [address] [place] [address] Consulting Physician NEPHROLOGY 11/29/18 Debi Michael RN [address] [place] [address] Punch Box Tender (Ambulatory) REGISTERED NURSE 05/23/23 06/07/23 Debi Michael RN [address] [place] [address] Punch Box Tender (Ambulatory) REGISTERED NURSE 09/04/24 11/06/24 documented as of this encounter
--- NOTE | 2025-02-21 17:07 | W.PM.PROC2 ---
Procedure Note - Detailed Date of Procedure 02/21/25 Pre-op Diagnosis acute chronic urinary retention, BPH Post-op Diagnosis Same Procedure Performed Cystoscopy, placement suprapubic catheter Surgeon Sahil Melgar MD Anesthesia General Description of Procedure Patient is brought to the operative suite where he has prepped and draped in routine sterile fashion while in a dorsal lithotomy position. Cystoscopy is undertaken with a 21 F rigid cystoscope. He has no urethral strictures with moderate lateral lobe hyperplasia of the prostate. Bladder mucosa is normal with only minimal hyperemia in the posterior wall consistent with catheter cystitis. There is no intravesical foreign body or neoplasm. I filled his bladder with saline and placed a spinal needle through the dome of the bladder 1035 in glidewire was advanced through that and grasped with the cystoscope. I dilated the suprapubic tract with Amplatz dilators to from 8 F to 22 F. I then placed an 16 F Councill tip catheter through the dome. The suprapubic catheter secured with a 3 O nylon. Scopes wires removed. Blood loss was approximately 5 cc. Drains Yes Pathology None sent Complications No immediate complications
== END 2025-02-21 17:50 | disposition home or self-care (01) ==
PROVIDERS: PCP Family Medicine; Visit Provider Urology
PROC: 0T9B30Z Drainage of Bladder with Drainage Device, Percutaneous Approach (ICD-10-PCS; CPT 51102; principal; 2025-02-21 15:30)
DX: N31.9 Neuromuscular dysfunction of bladder, unspecified (principal); N40.0 Benign prostatic hyperplasia without lower urinary tract symptoms; Z79.899 Other long term (current) drug therapy; Z87.891 Personal history of nicotine dependence
CPT/HCPCS: 51102; 99199; J0690; C1726; C1769; J2003; J2704; J3010; J7120